=== PATIENT | male | born 1975 | race African-American/Black ===

== ENCOUNTER 2016-08-28 20:50 | Emergency (ER) | payer OTHER ==
[~2016-08-28] VITALS: Ht 172.7 cm; Wt 91.2 kg
[~2016-08-28 20:50] MED LIST: METFORMIN HCL1000 M1 ORAL; NORCO 5-325 TA1 EACH ORAL; OMEPRAZOLE20 M2 ORAL; TRAMADOL HCL50 MG ORAL; ZOFRAN ODT4 MG ORAL; ZOFRAN4 M3 ORAL
[2016-08-28 21:13] VITALS: BP 133/80
[2016-08-28 22:50] LABS: EOSINOPHILS % (AUTO) 3.9 % (0.0-3.0); LYMPHOCYTES % (AUTO) 36.3 % (20.0-45.0); MEAN CORPUSCULAR HGB CONC 31.3 G/DL (32.0-36.0); MEAN CORPUSCULAR VOLUME 89 FL (80-99); MONOCYTES % (AUTO) 8.4 % (1.0-10.0); NEUTROPHILS % (AUTO) 50.3 % (45.0-75.0); PLATELET COUNT 286 K/UL (150-450); RED BLOOD COUNT 5.05 M/UL (4.70-6.10); RED CELL DISTRIBUTION WIDTH 13.1 % (11.6-14.8); WHITE BLOOD COUNT 9.6 K/UL (4.8-10.8)
[2016-08-28 22:56] VITALS: BP 129/84
[2016-08-28] MEDS ORDERED: Ketorolac 30mg Inj ONE (23:06)
[2016-08-28 23:08] LABS: ANION GAP 15 (5-15); CALCIUM 9.3 mg/dL (8.6-10.2); CARBON DIOXIDE 25 mEQ/L (20-30); CHLORIDE 90 mEQ/L (98-107); CREATININE 1.2 mg/dL (0.7-1.2); GLOMERULAR FILTRATION RATE > 60 mL/min (>60); HEMOLYSIS 5; POTASSIUM 4.3 mEQ/L (3.4-4.9); SODIUM 130 mEQ/L (135-145)
[2016-08-28] MEDS ORDERED: Ketorolac 30mg Inj IV ONE (23:15)
[2016-08-28] MEDS ORDERED: GLUCOPHAGE850 MG ORAL (23:28)
[2016-08-28] MEDS ORDERED: BACTRIM DS TAB1 EAC1 ORAL (23:28)
[2016-08-28] MEDS ORDERED: IBUPROFEN600 MG ORAL (23:28)
--- NOTE | 2016-08-28 23:29 | Emergency Room Report ---
History of Present Illness General Chief Complaint: Skin Rash/Abscess Source: Patient Present Illness HPI Is a 40-year-old male with a history of diabetes. He presents with chief complaint of lesion to his scalp for the last 3 weeks. Has been draining. His been putting home remedy on it. Worse with palpation. Denies any fever chills denies any nausea vomiting. He has history of diabetes been out of his medication for a month. Has not followup with any primary care. Allergies: Coded Allergies: No Known Allergies (Unverified , 10/03/15) Patient History Past Medical History: see triage record, old chart reviewed, DM Past Surgical History: none Pertinent Family History: none Social History: Denies: smoking Immunizations: other Reviewed Nursing Documentation: PMH: Agreed, PSxH: Agreed Nursing Documentation-PMH Hx Hypertension: Yes Hx Diabetes: Yes Hx Gastrointestinal Problems: Yes - PANCREATITIS Review of Systems Eye: Denies: blurred vision, eye pain ENT: Denies: ear pain, nose congestion, throat swelling Respiratory: Denies: cough, shortness of breath Cardiovascular: Denies: chest pain, palpitations Gastrointestinal: Denies: abdominal pain, diarrhea, nausea, vomiting Musculoskeletal: Denies: back pain, joint pain Skin: Denies: rash Neurological: Denies: headache, numbness Endocrine: Denies: increased thirst, increased urine Hematologic/Lymphatic: Denies: easy bruising All Other Systems: negative except mentioned in HPI Physical Exam Vital Signs Date Time Temp Pulse Resp B/P Pulse Ox O2 Delivery O2 Flow Rate FiO2 08/28/16 21:03 98.2 93 20 133/80 100 Room Air vitals normal. Sp02 EP Interpretation: reviewed, normal General Appearance: well appearing, no apparent distress, alert Head: normocephalic, atraumatic, other - left parietal: fluctuant area of 3cm. purulent dc Eyes: bilateral eye EOMI, bilateral eye PERRL ENT: hearing grossly normal, normal pharynx Neck: full range of motion, supple, no meningismus Respiratory: chest non-tender, lungs clear, normal breath sounds Cardiovascular #1: regular rate, rhythm, no murmur Gastrointestinal: normal bowel sounds, non tender, no mass, no organomegaly, no bruit, non-distended Musculoskeletal: back normal, gait/station normal, normal range of motion Psychiatric: mood/affect normal Skin: warm/dry Procedures Incision and Drainage Incision and Drainage : Consent: Verbal Site: Scalp Blade Size: 11 I & D Procedure: betadine prep, sterile drapes applied, sterile dressing applied Wound Location: head Anesthesia: 1% Lidocaine Volume Anesthetic (ccs): 6 Patient Tolerated: Well Complications: None Progress I removed the caked on blood and matted hair. Area cleaned with Betadine. Local anesthetic with 1% lidocaine without epinephrine. I made a 1 cm elliptical incision. There was minimal purulent discharge. Wound explored. It is irrigated. I removed about half of the capsule. To control the bleeding , I sutured the scalp with 3 interrupted 3-0 Prolene suture. Patient tolerated procedure without a problem. No complication. Medical Decision Making Diagnostic Impression: Primary Impression: Infected sebaceous cyst Additional Impressions: Hyperglycemia due to type 2 diabetes mellitus Qualified Codes: E11.65 - Type 2 diabetes mellitus with hyperglycemia Obesity (BMI 30.0-34.9) ER Course Patient presents with infected sebaceous cyst. I removed most of the capsule and suture the wound. Patient tolerated procedure without a problem. No evidence of DKA. I gave him insulin here. Repeat Accu-Chek was in the 300. We 'll discharge home with refill for his metformin. He will need to followup with his primary care DrMarisol within a week. Last Vital Signs Date Time Temp Pulse Resp B/P Pulse Ox O2 Delivery O2 Flow Rate FiO2 08/28/16 22:56 89 20 129/84 100 Room Air 08/28/16 21:13 98.2 Status: improved Disposition: HOME, SELF-CARE Condition: Stable Scripts Metformin Hcl* (GLUCOPHAGE*) 850 Mg Tablet 850 MG ORAL TWICE A DAY, #60 TAB Prov: AFSHIN BARAHONA M.D. 08/28/16 Ibuprofen* (MOTRIN*) 600 Mg Tablet 600 MG ORAL THREE TIMES A DAY, #30 TAB 0 Refills Prov: AFSHIN BARAHONA M.D. 08/28/16 Trimethoprim/Sulfamethoxazole 160/800* (BACTRIM DS TABLET*) 1 Each Tablet 1 TAB ORAL Q12H, #14 TAB 0 Refills Prov: AFSHIN BARAHONA M.D. 08/28/16 Referrals: [facility]ERR[facility] (PCP) Additional Instructions: Followup with your DrMarisol in 7 days. Return if worse. Take your diabetes medication. AFSHIN BARAHONA M.D. Aug 28, 2016 23:28
[2016-08-28 23:35] VITALS: BP 129/84
== END 2016-08-28 23:35 | disposition home or self-care (01) ==
LOC: EMR 21:34
DX: L72.3 Sebaceous cyst (principal); L08.9 Local infection of the skin and subcutaneous tissue, unspecified; E11.65 Type 2 diabetes mellitus with hyperglycemia; E66.9 Obesity, unspecified; Z68.30 Body mass index [BMI] 30.0-30.9, adult; I10 Essential (primary) hypertension
CPT/HCPCS: 10060; 36415; 80048; 85025; 96361; 96374; 96375; 99284; J1815; J1885

== ENCOUNTER 2016-09-22 11:51 | Emergency (ER) | payer SELFPAY ==
[~2016-09-22] VITALS: Ht 172.7 cm; Wt 99.8 kg
[~2016-09-22 11:51] MED LIST changes: +BACTRIM DS TAB1 EAC1 ORAL; +GLUCOPHAGE850 MG ORAL; +IBUPROFEN600 MG ORAL
[2016-09-22 12:19] VITALS: BP 149/91
[2016-09-22] MEDS ORDERED: BACTRIM DS TAB1 EAC1 ORAL (12:28)
[2016-09-22] MEDS ORDERED: Bactrim DS (160mg/800mg) tab ORAL ONE (12:30)
[2016-09-22 13:13] VITALS: BP 149/91
[2016-09-22 13:16] VITALS: BP 143/86
--- NOTE | 2016-09-22 14:34 | Emergency Room Report ---
History of Present Illness General Chief Complaint: Skin Rash/Abscess Source: Patient Present Illness HPI Patient is a 40-year-old male who presented after increased skin rash to his scalp. The patient had the been seen previously in emergency department and was started on antibiotics and had incision and drainage of scalp abscess. Patient was subsequently started on antibiotics. The patient noted having increased pain and swelling to the posterior scalp. He had not been vomiting. He reported having some pain to the left side of his neck. Allergies: Coded Allergies: No Known Allergies (Unverified , 10/03/15) Patient History Past Medical History: see triage record Reviewed Nursing Documentation: PMH: Agreed, PSxH: Agreed Nursing Documentation-PMH Hx Hypertension: Yes Hx Diabetes: Yes Hx Gastrointestinal Problems: Yes - PANCREATITIS Review of Systems All Other Systems: negative except mentioned in HPI Physical Exam Vital Signs Date Time Temp Pulse Resp B/P Pulse Ox O2 Delivery O2 Flow Rate FiO2 09/22/16 12:10 97.9 90 16 149/91 100 Room Air General Appearance: well appearing, no apparent distress, alert, GCS 15 Head: normocephalic, atraumatic, other - scalp swelling no purulent drainage ENT: hearing grossly normal, normal voice Neck: full range of motion, supple Respiratory: no respiratory distress, speaking full sentences Musculoskeletal: no calf tenderness Neurologic: normal gait Psychiatric: mood/affect normal Skin: no rash Medical Decision Making Diagnostic Impression: Primary Impression: Infection of scalp ER Course Patient presented for scalp redness. Differential diagnoses include was not limited to abscess, cellulitis, tinea capitis among others. Patient's benign exam and does not appear to require any further imaging or laboratory testing at this time. The patient appears to have a mild scalp infection at this time. The patient was advised to followup with his primary care physician for reexamination. Last Vital Signs Date Time Temp Pulse Resp B/P Pulse Ox O2 Delivery O2 Flow Rate FiO2 09/22/16 13:16 97.9 75 16 143/86 100 Room Air Status: improved Disposition: HOME, SELF-CARE Condition: Stable Scripts Trimethoprim/Sulfamethoxazole 160/800* (BACTRIM DS TABLET*) 1 Each Tablet 1 TAB ORAL TWICE A DAY, #28 TAB Prov: Manjit Maldonado 09/22/16 Referrals: NOT CHOSEN [facility],REFERRING (PCP) Patient Instructions: Cellulitis Manjit Maldonado Sep 22, 2016 14:34
== END 2016-09-22 13:17 | disposition home or self-care (01) ==
LOC: EMR 12:30
DX: L08.9 Local infection of the skin and subcutaneous tissue, unspecified (principal); E11.9 Type 2 diabetes mellitus without complications; I10 Essential (primary) hypertension
CPT/HCPCS: 99283

== ENCOUNTER 2016-10-01 21:08 | Emergency (ER) | payer SELFPAY ==
[~2016-10-01] VITALS: Ht 175.3 cm; Wt 104.3 kg
[2016-10-01] MEDS ORDERED: Cyclobenzaprine 10mg Tab ORAL ONE (21:45)
--- NOTE | 2016-10-01 22:17 | Emergency Room Report ---
History of Present Illness General Chief Complaint: Multiple Trauma/Fall Source: Patient Present Illness HPI Patient is a 40-year-old male presented for a low back pain after a fall at [facility]. The patient reported having a slip and fall in which he landed on both elbows as well as his buttocks. Patient reported having pain to both elbows as well as to his low back. Patient states that initially had no pain however this began to worsen. Patient prior history of diabetes. He recently been seen for a scalp infection. Allergies: Coded Allergies: No Known Allergies (Unverified , 10/03/15) Patient History Past Medical History: see triage record Reviewed Nursing Documentation: PMH: Agreed, PSxH: Agreed Nursing Documentation-PMH Hx Hypertension: Yes Hx Diabetes: Yes Hx Gastrointestinal Problems: Yes - PANCREATITIS Review of Systems All Other Systems: negative except mentioned in HPI Physical Exam Vital Signs Date Time Temp Pulse Resp B/P Pulse Ox O2 Delivery O2 Flow Rate FiO2 10/01/16 21:12 97.7 79 16 145/74 99 Room Air General Appearance: well appearing, no apparent distress, alert, GCS 15 Head: normocephalic, atraumatic, other - healing scalp infection ENT: hearing grossly normal, normal voice Neck: full range of motion, supple Respiratory: no respiratory distress, speaking full sentences Gastrointestinal: normal inspection, non tender, soft, no mass Musculoskeletal: normal inspection, back normal, no calf tenderness Neurologic: normal inspection, alert, responsive, normal gait Psychiatric: mood/affect normal Skin: no rash Medical Decision Making ER Course Patient presented for low back pain.Differential diagnosis included but was not limited to herniated disc, cauda equina syndrome, abdominal aortic aneurysm, perforated ulcer, spinal epidural abscess, spinal stenosis, lumbar fracture, metastatic lesion, pyelonephritis. Because recent trauma the lumbar spine x- rays were ordered. X-rays of the lumbar spine 3 view interpreted by me show degenerative changes without fracture. Patient presented for low back pain.Differential diagnosis included but was not limited to herniated disc, cauda equina syndrome, abdominal aortic aneurysm, perforated ulcer, spinal epidural abscess, spinal stenosis, lumbar fracture, metastatic lesion, pyelonephritis. The patient is advised to follow up with primary care doctor in 1-2 days. Patient is advised to return if any worsening condition or if any changes in status that are concerning. Last Vital Signs Date Time Temp Pulse Resp B/P Pulse Ox O2 Delivery O2 Flow Rate FiO2 10/01/16 21:12 97.7 79 16 145/74 99 Room Air Status: improved Disposition: HOME, SELF-CARE Condition: Stable Referrals: NOT CHOSEN [facility]/,REFERRING (PCP) Manjit Maldonado Oct 01, 2016 22:17
[2016-10-01] MEDS ORDERED: CYCLOBENZAPRINE10 MG ORAL (22:18)
[2016-10-01] MEDS ORDERED: IBUPROFEN600 MG ORAL (22:18)
[2016-10-01 22:25] VITALS: BP 137/70
[2016-10-01 22:34] VITALS: BP 137/70
--- NOTE | 2016-10-02 10:08 | Diagnostic Imaging Report ---
Indications: Fall, low back injury and pain. Technique: 3 views of the lumbar spine Findings: Comparison: None Vertebral alignment is intact. No fracture, lytic destruction, or other acute changes are demonstrated. Multilevel disc marginal osteophyte formation. L5-S1 facet joints mildly sclerotic. IMPRESSION: No evidence of acute lumbar injury Degenerative spondylosis
== END 2016-10-01 22:35 | disposition home or self-care (01) ==
LOC: EMR 21:25
DX: M54.5 Low back pain (principal); M47.896 Other spondylosis, lumbar region; M25.522 Pain in left elbow; M25.521 Pain in right elbow; I10 Essential (primary) hypertension; E11.9 Type 2 diabetes mellitus without complications; Z87.19 Personal history of other diseases of the digestive system
CPT/HCPCS: 72020; 99284